=== PATIENT | male | born 1990 | race Caucasian/White ===

== ENCOUNTER 2017-10-13 21:19 | Emergency (ER) | payer OTHER ==
[2017-10-13 21:30] VITALS: BP 160/103; PULSE 102; RESP 18; TEMP 99.9; O2SAT 99
[2017-10-13] MEDS ORDERED: Naproxen 550 mg Tab PO STA (21:50)
[2017-10-13] MEDS ORDERED: Naproxen 550 mg Tab PO ONE (21:56)
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
== END 2017-10-13 22:26 | disposition home or self-care (01) ==
LOC: SUPCPDRO 21:19 → C.ER 21:19
DX: S30.0XXA Contusion of lower back and pelvis, initial encounter (principal); V03.90XA Pedestrian on foot injured in collision with car, pick-up truck or van, unspecified whether traffic or nontraffic accident, initial encounter; Y92.410 Unspecified street and highway as the place of occurrence of the external cause